=== PATIENT | female | born 1935 | race Caucasian/White ===

== ENCOUNTER 2022-10-05 05:16 | Inpatient (IN) | payer OTHER, MEDICARE ==
[~2022-10-05] VITALS: Ht 157.5 cm; Wt 63.0 kg
[2022-10-05] VITALS (8 sets, daily range): BP systolic 119–158
[2022-10-05] MEDS ORDERED: ONDANSETRON HCL 4 MG/2 ML VIAL IVP ONE (05:30)
[2022-10-05] MEDS ORDERED: NS 500 ML IV ONE (05:30)
[2022-10-05 06:12] LABS: BASOPHILS # (AUTO) 0.1 K/uL (0.0-0.2); BASOPHILS % (AUTO) 1.3 % (0.0-2.0); EOSINOPHILS # (AUTO) 0.1 K/uL (0.0-0.4); EOSINOPHILS % (AUTO) 1.9 % (0.0-4.0); HEMATOCRIT 40.2 % (36-48); HEMOGLOBIN 13.5 g/dL (12.0-16.0); LYMPHOCYTES # (AUTO) 0.9 K/uL (1.0-5.5); LYMPHOCYTES % (AUTO) 14.2 % (20.5-51.5); MEAN CORPUSCULAR HEMOGLOBIN 30 pg (27-31); MEAN CORPUSCULAR HGB CONC 34 % (32-36); MEAN CORPUSCULAR VOLUME 89 fL (79.0-98.0); MONOCYTES # (AUTO) 0.4 K/uL (0.0-1.0); MONOCYTES % (AUTO) 7.3 % (1.7-9.3); NEUTROPHILS # (AUTO) 4.6 K/uL (1.8-7.7); NEUTROPHILS % (AUTO) 75.3 % (40.0-70.0); PLATELET COUNT (AUTO) 204 K/uL (130-430); RED CELL DISTRIBUTION WIDTH 15.6 % (9.0-15.0); WHITE BLOOD COUNT (AUTO) 6.1 K/uL (4.8-10.8)
[2022-10-05 06:22] LABS: ANION GAP 7 (5-15); CALCIUM 8.8 mg/dL (8.4-11.0); CHLORIDE 102 mmol/L (98-107); CREATININE 0.92 mg/dL (0.55-1.30); GLUCOSE 153 mg/dL (70-99); UREA NITROGEN, BLOOD 15 mg/dL (8-21)
[2022-10-05 06:29] LABS: ALANINE AMINOTRANSFERASE 25 U/L (12-78); ALBUMIN 3.3 g/dL (3.4-4.8); ASPARTATE AMINOTRANSFERASE 24 U/L (10-37); TOTAL BILIRUBIN 0.7 mg/dL (0.0-1.0)
[2022-10-05] MEDS ORDERED: ONDANSETRON 4 MG ODT TAB PO ONE (06:45)
[2022-10-05] MEDS ORDERED: MECLIZINE HCL 25 MG TABLET (ANITVERT) PO ONE (06:45)
[2022-10-05] MEDS ORDERED: CLOP75TA32 PO (07:09)
[2022-10-05] MEDS ORDERED: ASA81 PO (07:09)
[2022-10-05] MEDS ORDERED: LEVO88TA5 PO (07:09)
[2022-10-05] MEDS ORDERED: ESCI10TA PO (07:09)
[2022-10-05] MEDS ORDERED: ISOS30TA85 PO (07:09)
[2022-10-05] MEDS ORDERED: METO50TA7 PO (07:09)
[2022-10-05] MEDS ORDERED: FAMO20TA8 PO (07:09)
[2022-10-05] MEDS ORDERED: FURO-150 PO (07:09)
[2022-10-05] MEDS ORDERED: AMLO5TAB4 PO (07:09)
[2022-10-05] MEDS ORDERED: VALS320T2 PO (07:09)
[2022-10-05] MEDS ORDERED: LIP40 PO (07:09)
[2022-10-05] MEDS ORDERED: MAGNESIUM SULFATE 50 ML IV PRN (08:30)
[2022-10-05] MEDS ORDERED: ONDANSETRON HCL 4 MG/2 ML VIAL IVP PRN (08:30)
[2022-10-05] MEDS ORDERED: MUPIROCIN 2% TOPICAL OINTMENT 22 GM NS PRN (08:30)
[2022-10-05] MEDS ORDERED: POTASSIUM CHLORIDE 20 MEQ TAB.PRT.SR PO PRN (08:30)
[2022-10-05] MEDS ORDERED: DOCUSATE SODIUM 100 MG CAPSULE PO PRN (08:30)
[2022-10-05] MEDS ORDERED: ACETAMINOPHEN 325 MG TABLET PO PRN ×2 (08:30→09:00)
[2022-10-05] MEDS ORDERED: ESCITALOPRAM OXALATE 10 MG TABLET PO SCH (09:00)
[2022-10-05] MEDS: HEPARIN SODIUM,PORCINE 5,000 UNITS/ML VIAL SUBCUT SCH ×3 (09:00→20:49)
[2022-10-05] MEDS: LEVOTHYROXINE SODIUM 0.088 MG TABLET PO SCH (09:00)
[2022-10-05] MEDS: METOPROLOL SUCCINATE 50 MG TAB.SR.24H (TOPROL XL) PO SCH (11:10)
[2022-10-05] MEDS: CITALOPRAM HYDROBROMIDE 20 MG TABLET PO SCH (11:11)
[2022-10-05] MEDS: FUROSEMIDE 20 MG TABLET PO SCH (11:11)
[2022-10-05] MEDS: ASPIRIN 81 MG TAB.CHEW PO SCH (11:12)
[2022-10-05] MEDS ORDERED: INSULIN GLARGINE 100 UNITS/ML, 10 ML VIAL ONE (11:13)
[2022-10-05] MEDS: MECLIZINE HCL 25 MG TABLET (ANITVERT) PO SCH (20:47)
[2022-10-05] MEDS ORDERED: MECLIZINE HCL 25 MG TABLET (ANITVERT) PO SCH (21:00)
[2022-10-05] MEDS ORDERED: ATORVASTATIN 20 MG TABLET PO SCH ×2 (21:00)
[2022-10-06 00:20] VITALS: BP_SYST 123
[2022-10-06 01:39] LABS: ANION GAP 5 (5-15); CALCIUM 8.5 mg/dL (8.4-11.0); CHLORIDE 105 mmol/L (98-107); GLUCOSE 100 mg/dL (70-99); UREA NITROGEN, BLOOD 13 mg/dL (8-21)
[2022-10-06 05:53] LABS: BASOPHILS # (AUTO) 0.1 K/uL (0.0-0.2); BASOPHILS % (AUTO) 1.1 % (0.0-2.0); EOSINOPHILS # (AUTO) 0.2 K/uL (0.0-0.4); EOSINOPHILS % (AUTO) 2.8 % (0.0-4.0); HEMATOCRIT 38.6 % (36-48); HEMOGLOBIN 12.7 g/dL (12.0-16.0); LYMPHOCYTES # (AUTO) 1.9 K/uL (1.0-5.5); MEAN CORPUSCULAR HEMOGLOBIN 30 pg (27-31); MEAN CORPUSCULAR HGB CONC 33 % (32-36); MEAN CORPUSCULAR VOLUME 90 fL (79.0-98.0); MONOCYTES # (AUTO) 0.7 K/uL (0.0-1.0); MONOCYTES % (AUTO) 10.5 % (1.7-9.3); NEUTROPHILS # (AUTO) 3.8 K/uL (1.8-7.7); NEUTROPHILS % (AUTO) 57.6 % (40.0-70.0); PLATELET COUNT (AUTO) 201 K/uL (130-430); RED BLOOD CELL COUNT(AUTO) 4.28 MIL/uL (4.2-6.2); RED CELL DISTRIBUTION WIDTH 15.7 % (9.0-15.0); WHITE BLOOD COUNT (AUTO) 6.6 K/uL (4.8-10.8)
[2022-10-06] MEDS: LEVOTHYROXINE SODIUM 0.088 MG TABLET PO SCH (06:27)
[2022-10-06 08:00] VITALS: BP_SYST 129
[2022-10-06] MEDS ORDERED: MECL-160 PO (08:18)
[2022-10-06] MEDS: METOPROLOL SUCCINATE 50 MG TAB.SR.24H (TOPROL XL) PO SCH (09:00)
[2022-10-06] MEDS: ASPIRIN 81 MG TAB.CHEW PO SCH (09:51)
[2022-10-06] MEDS: MECLIZINE HCL 25 MG TABLET (ANITVERT) PO SCH (09:54)
[2022-10-06] MEDS: FUROSEMIDE 20 MG TABLET PO SCH (09:56)
[2022-10-06] MEDS: CITALOPRAM HYDROBROMIDE 20 MG TABLET PO SCH (09:57)
[2022-10-06] MEDS: HEPARIN SODIUM,PORCINE 5,000 UNITS/ML VIAL SUBCUT SCH (10:07)
[2022-10-06 11:05] VITALS: BP_SYST 129
[2022-10-06] MEDS ORDERED: CLOPIDOGREL BISULFATE 75 MG TABLET PO ONE (13:15)
[2022-10-07] MEDS ORDERED: CLOPIDOGREL BISULFATE 75 MG TABLET PO SCH (09:00)
== END 2022-10-06 12:00 | disposition home health service (06) | DRG 309 ==
LOC: SED 05:16 → STU 08:17
PROVIDERS: ADMIT Family Medicine; ATTEND Family Medicine
DX: R00.1 Bradycardia, unspecified (principal); E44.1 Mild protein-calorie malnutrition; E03.9 Hypothyroidism, unspecified; I25.10 Atherosclerotic heart disease of native coronary artery without angina pectoris; I10 Essential (primary) hypertension; E78.5 Hyperlipidemia, unspecified; Z20.822 Contact with and (suspected) exposure to COVID-19; Z79.82 Long term (current) use of aspirin; Z88.5 Allergy status to narcotic agent; Z79.899 Other long term (current) drug therapy; I25.2 Old myocardial infarction; Z68.25 Body mass index [BMI] 25.0-25.9, adult
CPT/HCPCS: 36415; 70450-TC; 71045; 76376; 80048; 80053; 83735; 83880; 84484; 85025; 85730-TC; 93005; 93306; 93880; 96361; 96374; 97112-GP; 97116-GP; 97530-GP; 99285; G0378; J1644; J1815; J2405; J8597